=== PATIENT | male | born 1955 | race Caucasian/White ===

== ENCOUNTER 2020-06-08 08:26 | Inpatient (IN) | payer OTHER ==
[2020-06-08 08:56] VITALS: BMI 21.5
[2020-06-08] MEDS ORDERED: MAGNESIUM CITRATE 300 ML BOTTLE PO PRN (09:43)
[2020-06-08] MEDS ORDERED: ONDANSETRON *ODT* 4 MG TABLET SL PRN (09:43)
[2020-06-08] MEDS ORDERED: ACETAMINOPHEN 325 MG TABLET (FP) PO PRN ×2 (09:43)
[2020-06-08] MEDS ORDERED: NICOTINE POLACRILEX 2 MG GUM BUC PRN (09:43)
[2020-06-08] MEDS ORDERED: MAGNESIUM HYDROX 2400MG/30ML ORAL SUSPENSION 30 ML CUP PO PRN (09:43)
[2020-06-08] MEDS ORDERED: MENTHOL/PHENOL 1 EACH UD MM PRN (09:43)
[2020-06-08] MEDS ORDERED: cloNIDine HCL 0.1 MG TABLET PO PRN (09:43)
[2020-06-08] MEDS ORDERED: MAG HYDROX/AL HYDROX/SIMETH 30 ML UNIT-DOSE CUP PO PRN (09:43)
[2020-06-08] MEDS ORDERED: IBUPROFEN 400 MG TABLET (FP) PO PRN (09:43)
[2020-06-08] MEDS ORDERED: BISMUTH SUBSALICYLATE 262 MG/15 ML BTL PO PRN (09:43)
[2020-06-08] MEDS ORDERED: ALBUTEROL SO4 HFA INHALER IH PRN (09:45)
[2020-06-08] MEDS ORDERED: methaDONE HCL 10 MG TABLET (FOR DETOX USE ONLY) PO ONE (10:00)
[2020-06-08] MEDS: hydrOXYzine PAMOATE 25 MG CAPSULE (FP) PO SCH ×4 (11:09→22:21)
[2020-06-08] MEDS: PRENATAL VITAMINS W/ FOLIC ACID TABLET (FP) PO SCH (11:21)
[2020-06-08] MEDS: NICOTINE 14 MG/24 HOURS TOPICAL PATCH TD SCH (11:22)
[2020-06-08 14:08] LABS: HEMATOCRIT 34.5 % (35.4-49); HEMOGLOBIN 11.6 GM/dL (11.7-16.9); MCHC 33.7 g/dl (32.0-35.9); MEAN CELL VOLUME 91.9 fl (80-96); MEAN PLT VOLUME 7.4 fl (7.5-11.1); PLATELET COUNT 224 K/MM3 (134-434); RBC 3.76 M/mm3 (4.00-5.60); RDW 14.1 % (11.9-15.9); WHITE BLOOD COUNT 4.5 K/mm3 (4.0-10.0)
[2020-06-08 14:15] LABS: ALBUMIN 3.6 g/dl (3.4-5.0); CALCIUM 9.2 mg/dL (8.5-10.1)
[2020-06-08 14:16] LABS: BLOOD UREA NITROGEN 21.1 mg/dL (7-18)
[2020-06-08 14:19] LABS: CREATININE 1.4 mg/dL (0.55-1.3)
[2020-06-08 14:20] LABS: BILIRUBIN,TOTAL 0.2 mg/dL (0.2-1); TOT PROT 7.5 g/dl (6.4-8.2)
[2020-06-08] MEDS: THIAMINE HCL 100 MG TABLET (FP) PO SCH (22:21)
[2020-06-08] MEDS: MELATONIN 5 MG TABLETS PO SCH (22:21)
[2020-06-09] MEDS: hydrOXYzine PAMOATE 25 MG CAPSULE (FP) PO SCH ×5 (05:47→22:05)
[2020-06-09] MEDS ORDERED: methaDONE HCL 10 MG TABLET (FOR DETOX USE ONLY) ONE (09:10)
[2020-06-09] MEDS: PRENATAL VITAMINS W/ FOLIC ACID TABLET (FP) PO SCH (10:16)
[2020-06-09] MEDS: NICOTINE 14 MG/24 HOURS TOPICAL PATCH TD SCH (10:16)
[2020-06-09] MEDS: MELATONIN 5 MG TABLETS PO SCH (22:05)
[2020-06-09] MEDS: THIAMINE HCL 100 MG TABLET (FP) PO SCH (22:05)
[2020-06-10] MEDS: hydrOXYzine PAMOATE 25 MG CAPSULE (FP) PO SCH ×5 (07:21→22:12)
[2020-06-10] MEDS: PRENATAL VITAMINS W/ FOLIC ACID TABLET (FP) PO SCH (09:12)
[2020-06-10] MEDS: NICOTINE 14 MG/24 HOURS TOPICAL PATCH TD SCH (09:13)
[2020-06-10] MEDS ORDERED: methaDONE HCL 10 MG TABLET (FOR DETOX USE ONLY) PO ONE (10:00)
[2020-06-10] MEDS: THIAMINE HCL 100 MG TABLET (FP) PO SCH (22:12)
[2020-06-10] MEDS: MELATONIN 5 MG TABLETS PO SCH (22:13)
[2020-06-11] MEDS: hydrOXYzine PAMOATE 25 MG CAPSULE (FP) PO SCH ×5 (06:35→22:29)
[2020-06-11] MEDS ORDERED: methaDONE HCL 10 MG TABLET (FOR DETOX USE ONLY) ONE (09:00)
[2020-06-11] MEDS: PRENATAL VITAMINS W/ FOLIC ACID TABLET (FP) PO SCH (09:17)
[2020-06-11] MEDS: NICOTINE 14 MG/24 HOURS TOPICAL PATCH TD SCH (09:17)
[2020-06-11 17:19] LABS: CALCIUM 9.3 mg/dL (8.5-10.1)
[2020-06-11 17:20] LABS: BLOOD UREA NITROGEN 23.8 mg/dL (7-18)
[2020-06-11 17:23] LABS: CREATININE 1.4 mg/dL (0.55-1.3)
[2020-06-11] MEDS: METHOCARBAMOL 500 MG TABLET PO PRN (22:28)
[2020-06-11] MEDS: THIAMINE HCL 100 MG TABLET (FP) PO SCH (22:29)
[2020-06-11] MEDS: MELATONIN 5 MG TABLETS PO SCH (22:43)
[2020-06-12] MEDS: hydrOXYzine PAMOATE 25 MG CAPSULE (FP) PO SCH ×5 (06:31→22:31)
[2020-06-12] MEDS: PRENATAL VITAMINS W/ FOLIC ACID TABLET (FP) PO SCH (09:52)
[2020-06-12] MEDS: METHOCARBAMOL 500 MG TABLET PO PRN (09:52)
[2020-06-12] MEDS: NICOTINE 14 MG/24 HOURS TOPICAL PATCH TD SCH (09:54)
[2020-06-12] MEDS ORDERED: methaDONE HCL 10 MG TABLET (FOR DETOX USE ONLY) PO ONE (10:00)
[2020-06-12] MEDS: THIAMINE HCL 100 MG TABLET (FP) PO SCH (22:31)
[2020-06-12] MEDS: MELATONIN 5 MG TABLETS PO SCH (22:31)
[2020-06-13] MEDS: hydrOXYzine PAMOATE 25 MG CAPSULE (FP) PO SCH ×2 (05:43→10:05)
[2020-06-13 09:31] VITALS: BP 117/79; PULSE 82; TEMP 97.8
[2020-06-13] MEDS: PRENATAL VITAMINS W/ FOLIC ACID TABLET (FP) PO SCH (10:05)
[2020-06-13] MEDS: NICOTINE 14 MG/24 HOURS TOPICAL PATCH TD SCH (10:05)
== END 2020-06-13 10:18 | disposition home or self-care (01) | DRG 773 ==
LOC: YASAS 08:26 → Y3N 10:00
PROVIDERS: ADMIT Allergy & Immunology; ATTEND Allergy & Immunology
PROC: HZ2ZZZZ Detoxification Services for Substance Abuse Treatment (ICD-10-PCS; principal; 2020-06-08)
DX: F11.23 Opioid dependence with withdrawal (principal); F14.20 Cocaine dependence, uncomplicated; F13.10 Sedative, hypnotic or anxiolytic abuse, uncomplicated; F17.210 Nicotine dependence, cigarettes, uncomplicated; J44.9 Chronic obstructive pulmonary disease, unspecified; M54.5 Low back pain; G89.29 Other chronic pain; B18.2 Chronic viral hepatitis C; R79.89 Other specified abnormal findings of blood chemistry; Z86.19 Personal history of other infectious and parasitic diseases; Z90.49 Acquired absence of other specified parts of digestive tract; Z56.0 Unemployment, unspecified
CPT/HCPCS: 36415; 80048; 80053; 85027; 86593; 86780; 93005; 93010; C9803; U0003